=== PATIENT | male | born 1955 | race Caucasian/White ===

== ENCOUNTER 2021-12-16 09:30 | Outpatient (CLI) | payer OTHER, SELFPAY ==
--- OUTSIDE RECORDS SUMMARY | 2021-12-16 09:33 | XMS_ITS | Clinical Summary ---
:1955 Author Organization [employer] [facility] [place] [address] Care Team Providers Name Role Phone Oumar Smith MD Primary Care Provider Allergies Not on File Medications Not on file Active Problems Not on file Social History Tobacco Use Types Packs/Day Years Used Date Never Assessed Sex Assigned at Date Recorded Not on file Plan of Treatment Health Maintenance Due Date Last Done Comments COVID-19 vaccine series (#1) 1955 Tdap 1966 Depression screening for age 12+ 1967 BMI (ht and wt on same day) for age 18+ 1973 Hepatitis C screening for age 18-79 1973 Tetanus booster 1975 Colonoscopy through age 75 02/09/2000 Lipids for age 45-75 02/09/2000 Zoster (shingles) series for age 50+ (1 of 2) 2005 Pneumococcal series for age 65+ (1 - PCV) 02/09/2020 Influenza for age 65+ 10/21/2021 Results Not on filefrom Last 3 Months Care Teams Java Spring Developer Relationship Specialty Start Date End Date Oumar Smith MD PCP - General 06/04/07
[2021-12-16 11:57] LABS: Albumin* 4.7 g/dL (3.3-5.0); Chloride* 104 mmol/L (96-114)
[2021-12-16 11:58] LABS: Potassium* 4.5 mmol/L (3.6-5.1); Sodium* 140 mmol/L (135-149)
[2021-12-16 12:00] LABS: Alkaline Phosphatase* 103 U/L (40-150); Aspartate Amino Transferase* 33 U/L (12-35); Bilirubin Total* 0.6 mg/dL (0.1-1.5); Blood Urea Nitrogen* 17 mg/dL (7-30); Carbon Dioxide* 29 mmol/L (20-32); Cholesterol* 201 mg/dL (90-199); Estimated Glomerular Filt Rate 83 ml/min; Total Protein* 7.3 g/dL (6.0-8.3)
[2021-12-16 12:01] LABS: Alanine Aminotransferase* 46 U/L (4-50); Calcium* 10.2 mg/dL (8.4-10.6); Glucose* 122 mg/dL (60-115); HDL Cholesterol* 69 mg/dL (>=40); LDL Cholesterol Calculated 102 mg/dL (<100); Triglycerides* 156 mg/dL (40-149)
[2021-12-16 12:31] LABS: PSA Screen* 1.53 ng/mL (0.10-4.00)
== END 2021-12-16 09:31 | disposition home or self-care (01) ==
PROVIDERS: PCP Internal Medicine; Visit Provider Internal Medicine
DX: Z13.6 Encounter for screening for cardiovascular disorders (principal); Z12.5 Encounter for screening for malignant neoplasm of prostate
CPT/HCPCS: 80053; 80061; 84153

== ENCOUNTER 2022-01-21 09:20 | Outpatient (CLI) | payer OTHER, SELFPAY ==
--- OUTSIDE RECORDS SUMMARY | 2022-01-21 09:26 | XMS_ITS | Clinical Summary ---
:1955 Author Organization [employer] [facility] [place] [address] Care Team Providers Name Role Phone Oumar [...] on filefrom Last 3 Months Care Teams Player Services Representative Relationship Specialty Start Date End Date Oumar Smith MD PCP - General 06/04/07
--- NOTE | 2022-01-21 10:39 | W.ANESCHARGE ---
Anesthesia Charges Start Date/Time Anesthesia Start Date: 01/21/22 Anesthesia Start Time: 10:01 Stop Date/Time Anesthesia Stop Date: 01/21/22 Anesthesia Stop Time: 10:29 Summary Emergency: No
--- NOTE | 2022-01-21 11:01 | W.ANESCHARGE ---
Anesthesia Charges Start Date/Time Anesthesia Start Date: 01/21/22 Anesthesia Start Time: 10:01 Stop Date/Time Anesthesia Stop Date: 01/21/22 Anesthesia Stop Time: 10:29 Summary Emergency: No
== END 2022-01-21 09:21 | disposition home or self-care (01) ==
LOC: OP CLINIC 09:24
PROVIDERS: PCP Internal Medicine; Visit Provider Internal Medicine
DX: Z12.11 Encounter for screening for malignant neoplasm of colon (principal)
CPT/HCPCS: 00811; 00812; 45378; J2704

== ENCOUNTER 2023-01-03 13:10 | Outpatient (CLI) | payer OTHER, SELFPAY | END 2023-01-03 13:11 | disposition home or self-care (01) | LOC: NFLDREF 13:11 | PROVIDERS: PCP Internal Medicine; Visit Provider Internal Medicine | DX: Z00.00 Encounter for general adult medical examination without abnormal findings (principal); E78.5 Hyperlipidemia, unspecified; F41.9 Anxiety disorder, unspecified; Z12.5 Encounter for screening for malignant neoplasm of prostate; Z13.9 Encounter for screening, unspecified | CPT/HCPCS: 80053; 80061; 84153 ==

== ENCOUNTER 2024-01-09 09:18 | Outpatient (CLI) | payer OTHER, SELFPAY ==
--- OUTSIDE RECORDS SUMMARY | 2024-01-09 09:23 | XMS_ITS | Clinical Summary ---
Author Organization [employer] Address [place], [place] [address] Care Team Providers Care Manager Terminal Name Role Phone Oumar Smith MD Primary Care Provider [phone] Social History Tobacco Use Types Packs/Day Years Used Date Smoking Tobacco: Never Assessed Sex and Gender Information Value Date Recorded Sex Assigned at Not on file Gender Identity Not on file Sexual Orientation Not on file Plan of Treatment Health Maintenance Due Date Last Done Comments Tdap 1966 Depression screening for age 12+ 1967 BMI (ht and wt on same day) for age 18+ 1973 Hepatitis C screening for age 18-79 1973 Tetanus booster 1975 Colonoscopy through age 75 02/09/2000 Lipids for age 45-75 02/09/2000 Zoster (shingles) series for age 50+ (1 of 2) 02/09/20 05 Pneumococcal series for age 65+ (1 of 1 - PCV) 020 COVID-19 vaccine series (2023- season) 4 Influenza for age 65+ 10/22/2023 Care Teams Manager Terminal Relationship Specialty Start Date End Date Oumar Smith MD PCP - General 06/04/07
== END 2024-01-09 09:19 | disposition home or self-care (01) ==
PROVIDERS: PCP Internal Medicine; Visit Provider Internal Medicine
DX: E78.5 Hyperlipidemia, unspecified (principal); Z12.5 Encounter for screening for malignant neoplasm of prostate
CPT/HCPCS: 80053; 80061; G0103

== ENCOUNTER 2024-02-13 07:35 | Outpatient (CLI) | payer OTHER, SELFPAY | END 2024-02-13 07:36 | disposition home or self-care (01) | LOC: NFLDREF 09:16 | PROVIDERS: PCP Internal Medicine; Referring Provider Internal Medicine; Visit Provider Internal Medicine | DX: Z13.1 Encounter for screening for diabetes mellitus (principal) | CPT/HCPCS: 82947 ==

== ENCOUNTER 2024-07-25 13:56 | Outpatient (CLI) | payer MEDICARE, SELFPAY | END 2024-07-25 13:57 | disposition home or self-care (01) | LOC: NFLDREF 07-27 07:46 | PROVIDERS: PCP Internal Medicine; Referring Provider Internal Medicine; Visit Provider Internal Medicine | DX: E11.9 Type 2 diabetes mellitus without complications (principal); N52.9 Male erectile dysfunction, unspecified; N40.0 Benign prostatic hyperplasia without lower urinary tract symptoms | CPT/HCPCS: 87086 ==